=== PATIENT | female | born 1995 | race Caucasian/White ===

== ENCOUNTER 2018-01-21 14:26 | Emergency (ER) | payer BC ==
--- NOTE | 2018-01-21 15:03 | EDPHY ---
H & P Stated Complaint: UTI sxs today Source: Patient Exam Limitations: No limitations - Personal History LMP (Females 10-55): 1-7 Days Ago Current Tetanus Diphtheria and Acellular Pertussis (TDAP): Yes - Medical/Surgical History Other PMH: healthy - Social History Smoking Status: Current every day smoker Time Seen by Provider: 01/21/18 15:02 HPI/ROS: HPI: This is a 22-year-old female who presents with Chief Complaint: Urinary tract infection signs starting today. Location: Quality: Burning with urination and blood in urine Duration: 24 hr Signs and Symptoms: no fever, no nausea, no vomiting, no hematemesis, no blood in stool, no abdominal bloating, no diarrhea, no back pain, + urinary symptoms, no vaginal bleeding/discharge, no indigestion, no chest pain, no shortness of breath Timing: Sudden onset, constant Severity: Moderate Context: Patient is a student at [employer], sexually active, Takes oral control pill, presents with complaints of sudden onset of burning with urination and blood in her urine since yesterday. Patient reports that she has bladder fullness and cramping pain in her lower abdomen. She denies fever, back pain, nausea, vomiting, diarrhea. LMP ended 3 days ago. She reports that she does not do well taking penicillins. She has a history of frequent urinary tract infections in the last 1 was around [facility] and she took 7 days of Bactrim. Modifying Factors: None Comment: ROS: A comprehensive 10 system review of systems is otherwise negative aside from elements mentioned in the history of present illness. MEDICAL/SURGICAL/SOCIAL HISTORY: Medical history: Generally healthy. Does not take any regular medications. Surgical history: Denies Social history: Current every day smoker. Family history noncontributory. CONSTITUTIONAL: Extremely well-appearing young adult white female, awake and alert, no obvious distress HEENT: Atraumatic and normocephalic, PERRL, EOMI. Nares patent; no rhinorrhea; no nasal mucosal edema. Tympanic membranes clear. Oropharynx clear, no exudate and moist pink mucosa. Airway patent. No lymphadenopathy. No meningismus. Cardiovascular: Normal S1/S2, regular rate, regular rhythm, without murmur rub or gallop. PULMONARY/CHEST: Symmetrical and nontender. Clear to auscultation bilaterally. Good air movement. No accessory muscle usage. ABDOMEN: Soft, nondistended, nontender, no rebound, no guarding, no peritoneal signs, no masses or organomegaly. No CVAT. EXTREMITIES: 2/2 pulses, strength 5/5, no deformities, no clubbing, no cyanosis or edema. NEUROLOGICAL: no focal neuro deficits. GCS 15. SKIN: Warm and dry, no erythema. no rash. Good capillary refill. (Harleen El) Constitutional: Initial Vital Signs Temperature (C) 36.6 C 01/21/18 14:35 Heart Rate 68 01/21/18 14:35 Respiratory Rate 16 01/21/18 14:35 Blood Pressure 111/80 01/21/18 14:35 O2 Sat (%) 98 01/21/18 14:35 O2 Delivery Mode Room Air Allergies/Adverse Reactions: No Known Allergies Allergy (Unverified 01/21/18 14:44) Home Medications: Medication Instructions Recorded Control Pill 01/21/18 Cefuroxime Axetil [Ceftin (*)] 250 mg PO BID 7 Days tab 01/21/18 Medical Decision Making ED Course/Re-evaluation: Vital signs reviewed and stable upon arrival. No systemic signs. Urinalysis and urine ordered Abdomen is soft and nontender. Doubt surgical process and need for imaging. Urine negative 1607: Urinalysis shows severe infection; sent for urine culture Decision made to obtain IV access and laboratory studies. Given 1 L normal saline, IV ceftriaxone 1 g, p.o. Pyridium 200 mg and IV Toradol 30 mg No systemic signs like fever, nausea, vomiting, back pain to suggest pyelonephritis/sepsis 1710: End of shift. Signed over to GONZÁLEZ Clayton pending laboratory results. This patient was seen under the supervision of my secondary supervising physician. I evaluated care for this patient independently. Discussed this patient with Dr. Hernandez who did not see the patient. (Harleen El) I assumed care of this patient at 5:00 p.m. at end of shift. I was notified by the nursing staff that despite numerous attempts they were unable to draw a repeat blood studies. I evaluated the patient. She was well-appearing. Vital signs were stable. She has been tolerating oral challenges. She had received the full dose of Rocephin IV before the IV stopped working. I do not believe blood studies will change course of management for this patient. I will add Drain to her pain management. I have discussed the plan with Dr. Morris Hernandez who is in agreement. We again discussed home care and return precautions. ( Jake Clayton) Differential Diagnosis: Differential diagnosis includes but is not limited to acute cystitis, pyelonephritis, sexually transmitted diseases, pelvic inflammatory disease, ovarian torsion, kidney stones. (Harleen El) - Data Points Laboratory Results: Laboratory Results 01/21/18 16:30 01/21/18 01/21/18 16:30 15:36 Sodium REJ Potassium REJ Chloride REJ Carbon Dioxide REJ Anion Gap REJ BUN REJ Creatinine REJ Estimated GFR REJ Glucose REJ Calcium REJ Urine Color YURI Urine Appearance TURBID Urine pH 5.0 (5.0-7.5) Ur Specific [place] 1.027 (1.002-1.030) Urine Protein 2+ H (NEGATIVE) Urine Ketones 1+ H (NEGATIVE) Urine Blood 3+ H (NEGATIVE) Urine Nitrate NEGATIVE (NEGATIVE) Urine Bilirubin NEGATIVE (NEGATIVE) Urine Urobilinogen NEGATIVE EU EU (0.2-1.0) Ur Leukocyte Esterase 3+ H (NEGATIVE) Urine RBC 50-182 /hpf H /hpf (0-3) Urine WBC 50-182 /hpf H /hpf (0-3) Ur Epithelial Cells 1+ /lpf /lpf (NONE-1+) Urine Bacteria 2+ /hpf H /hpf (NONE SEEN) Urine Mucus 4+ /lpf H /lpf (NONE-1+) Urine Glucose NEGATIVE (NEGATIVE) Medications Given: Discontinued Medications Hydrocodone Bitart/Acetaminophen (Drain 5/325mg Prepack#6) 1 btl TAKEHOME EDNOW ONE Stop: 01/21/18 17:25 Last Admin: 01/21/18 17:37 Dose: 1 btl Hydrocodone Bitart/Acetaminophen (Drain 5/325) 1 tab PO EDNOW ONE Stop: 01/21/18 17:25 Last Admin: 01/21/18 17:36 Dose: 1 tab Ceftriaxone Sodium/Dextrose (Rocephin 1 Gm (Premix)) 50 mls @ 100 mls/hr IV EDNOW ONE PRN Reason: Protocol Stop: 01/21/18 16:34 Last Admin: 01/21/18 16:29 Dose: 50 mls Sodium Chloride (Ns) 1,000 mls @ 0 mls/hr IV ONCE ONE; Wide Open PRN Reason: Protocol Stop: 01/21/18 16:07 Last Admin: 01/21/18 16:29 Dose: 1,000 mls Ketorolac Tromethamine (Toradol) 30 mg IVP EDNOW ONE Stop: 01/21/18 16:07 Last Admin: 01/21/18 16:29 Dose: 30 mg Phenazopyridine HCl (Pyridium) 200 mg PO EDNOW ONE Stop: 01/21/18 16:07 Last Admin: 01/21/18 16:30 Dose: 200 mg Point of Care Test Results: Urine Collection Date 01/21/18 Collection Time 15:36 HCG Results Negative Departure - Departure Disposition: Home, Routine, Self-Care Clinical Impression: Acute cystitis with hematuria Condition: Good Instructions: Hydrocodone/Acetaminophen (By mouth), Urinary Tract Infection in Women (ED) Additional Instructions: Consume a minimum of 8-10 glasses of water or electrolyte fluid replacement drinks that include Gatorade, Powerade, Pedialyte. Eat a bland diet for the next 48 hours and then slowly advance as tolerated. In regards to pain control see the following: Use ibuprofen 600 mg 3 times a day for the next 2-3 days for pain In addition You have been prescribed Drain for pain. Drain contains Tylenol, do not take extra Tylenol/acetaminophen/Apap with it. It is sedating. Take antibiotic as directed. Do not skip a dose. Take full 7 day course. Do not engage in sexual intercourse until all symptoms have resolved. Referrals: DR EZIO [Other] - As per Instructions Prescriptions: Cefuroxime Axetil [Ceftin (*)] 250 mg PO BID 7 Days tab
[2018-01-21] MEDS ORDERED: PHENAZOPYRIDINE HCL 200 MG TAB PO ONE (16:06)
[2018-01-21] MEDS ORDERED: NS 1,000 ML IV ONE (16:06)
[2018-01-21] MEDS ORDERED: KETOROLAC 30 MG/1 ML SDV IVP ONE (16:06)
[2018-01-21] MEDS ORDERED: HYDROCOD/APAP 5/325 PREPACK#6 BTL TAKEHOME ONE (17:24)
[2018-01-21] MEDS ORDERED: HYDROCODONE/APAP 5/325 TAB PO ONE (17:24)
[2018-01-21 17:46] VITALS: BP 126/79
== END 2018-01-21 17:47 | disposition home or self-care (01) ==
DX: N30.01 Acute cystitis with hematuria (principal)
CPT/HCPCS: 96365; J0696; J1885